=== PATIENT | female | born 1995 | race Caucasian/White ===

== ENCOUNTER → 2016-09-26 | Outpatient (CLI) | payer BC ==
[2016-09-26 22:22] LABS: CHLAM PCR NOT DETECTED (NOT DETECT)
== END ==
LOC: LAB 20:31
PROVIDERS: ATTEND Nurse Practitioner Acute Care
DX: N89.8 Other specified noninflammatory disorders of vagina (principal)
CPT/HCPCS: 87086; 87210; 87491; 87591

== ENCOUNTER 2017-03-22 10:02 | Emergency (ER) | payer SELFPAY ==
[2017-03-22 10:09] VITALS: BP 114/67
[2017-03-22] MEDS ORDERED: METHYLPREDNISOLONE INJ 125 MG/2 ML SDV IM ONE (10:19)
--- NOTE | 2017-03-22 10:21 | ER Document Report ---
HPI - HPI Pain Level: 2 Notes: Patient is a 22-year-old female who presents the ED complaining of a sore throat , swollen tonsils, and feverish 2 days. Patient states that she is still able to eat and drink, but does have pain and some discomfort with swallowing. Patient has not had any [id number] meds for symptoms. Patient states that she has had some nasal congestion and discharge. Denies any drug allergies or significant past medical history. Patient states her symptoms have been persistent and not worsening. Denies any headache, neck pain/ stiffness, eye redness/discharge, chest pain, palpitations, syncope, cough, shortness of breath, wheeze, dyspnea, abdominal pain, nausea/vomiting/diarrhea, urinary retention, dysuria, hematuria, or rash. Denies any recent travel, illness, exposure to sick contacts. Immunizations reported to be up-to-date. - ROS Notes: REVIEW OF SYSTEMS: CONSTITUTIONAL : see hpi. Denies recent illness. EENT: see hpi CARDIOVASCULAR: Denies chest pain. Denies palpitations or racing or irregular heart beat. Denies ankle edema. RESPIRATORY: Denies cough, cold, or chest congestion. Denies shortness of breath, difficulty breathing, or wheezing. GASTROINTESTINAL: Denies abdominal pain or distention. Denies nausea, vomiting , or diarrhea. Denies blood in vomitus, stools, or per rectum. Denies black, tarry stools. Denies constipation. GENITOURINARY: Denies difficulty urinating, painful urination, burning, frequency, blood in urine, or discharge. MUSCULOSKELETAL: Denies back or neck pain or stiffness. Denies joint pain or swelling. SKIN: Denies rash, lesions or sores. NEUROLOGICAL: Denies confusion or altered mental status. Denies passing out or loss of consciousness. Denies dizziness or lightheadedness. Denies headache. Denies weakness or paralysis or loss of use of either side. Denies problems with gait or speech. Denies sensory loss, numbness, or tingling. ALL OTHER SYSTEMS REVIEWED AND NEGATIVE. Dictation was performed using [employer] voice recognition software - REPRODUCTIVE LMP: February 25, 2017 Reproductive: DENIES: : - DERM Skin Color: Normal Past Medical History - Social History Smoking Status: Never Smoker Family History: Reviewed & Not Pertinent Patient has suicidal ideation: No Patient has homicidal ideation: No Renal/ Medical History: Denies: Hx Peritoneal Dialysis Psychiatric Medical History: Reports: Hx Attention Deficit Hyperactivity Disorder, Hx Depression - Immunizations Immunizations up to date: Yes Hx Diphtheria, Pertussis, Tetanus Vaccination: Yes Vertical Provider Document - CONSTITUTIONAL Agree With Documented VS: Yes Notes: PHYSICAL EXAMINATION: GENERAL: Well-appearing, well-nourished and in no acute distress. HEAD: Atraumatic, normocephalic. EYES: Pupils equal round and reactive to light, extraocular movements intact, sclera anicteric, conjunctiva are normal. ENT: EAC clear b/l. TM's intact b/l without erythema, fluid, or perforation. Nares patent and without discharge. oropharynx mild erythema without exudates. 1+ tonsilar hypertrophy with exudate on the right. No palatine shift. Uvula midline. No tongue protrusion. Moist mucous membranes. No sinus tenderness. NECK: Normal range of motion, supple with anterior cerv lymphadenopathy. No rigidity/meningismus. LUNGS: Breath sounds clear to auscultation bilaterally and equal. No wheezes rales or rhonchi. HEART: Regular rate and rhythm without murmurs, rubs, gallops. ABDOMEN: Soft, nontender, nondistended abdomen. No guarding, no rebound. No masses appreciated. Normal bowel sounds present. No CVA tenderness bilaterally. No hepatosplenomegally. NEUROLOGICAL: Normal speech, normal gait. Normal sensory, motor exams PSYCH: Normal mood, normal affect. SKIN: Warm, Dry, normal turgor, no rashes or lesions noted. - INFECTION CONTROL TRAVEL OUTSIDE OF THE [place] IN LAST 30 DAYS: No - RESPIRATORY O2 Sat by Pulse Oximetry: 97 Course - Re-evaluation Re-evalutation: 03/22/17 10:55 Patient is an afebrile, well-hydrated, 22-year-old female who presents the ED with acute strep pharyngitis based on clinical suspicion/H&P today. Vitals are stable. PE otherwise unremarkable. Rapid strep negative (will treat on clinical suspicion). I will cover her with penicillin VK to take as directed. Solu-Medrol 125 mg given as well. Pt aware that if rash develops to stop medication and f/u with PCM. Avoid contact sports if any development of abd pain. Low suspicion for any meningitis, sepsis, peritonsillar/pharyngeal abscess, respiratory compromise, Hermes's, temporal arteritis, or other emergent systemic condition at this time. Patient is aware this condition can change from initial presentation and she needs to monitor symptoms closely. Conservative measures otherwise for symptoms. Recheck with your PCM this week. Consider consult with ENT for ongoing/worsening symptoms. Return to the ED with any worsening/concerning symptoms otherwise as reviewed in discharge. Patient is in agreement. - Vital Signs Vital signs: Temp Pulse Resp BP Pulse Ox 98.5 F 82 114/67 97 03/22/17 10:06 03/22/17 10:06 03/22/17 10:06 03/22/17 10:06 Discharge - Discharge Clinical Impression: Strep pharyngitis Condition: Stable Disposition: HOME, SELF-CARE Instructions: Penicillin V K ([facility]), Strep Throat ([facility]) Additional Instructions: Maintain adequate fluid intake Take meds as directed Salt water gargles, throat sprays, mouthwash rinse, peroxide gargles tylenol/ibuprofen as needed New toothbrush tomorrow evening over the counter cold medication as needed for symptoms F/u: with your PCM in 2-3 days for a recheck Consider consult with ENT for ongoing/worsening symptoms Return to the ED with any fever, worsening pain, chest pain, neck pain/stiffness , shortness of breath, cough, drooling, trouble swallowing/breathing, abdominal pain, n/v/d, rash, or worsening/concerning symptoms otherwise. Prescriptions: Penicillin V Potassium [Penicillin Vk 500 mg Tablet] 500 mg PO BID #20 tablet Forms: Return to Work Referrals: [facility] [Provider Group] - Follow up as needed [facility] [Provider Group] - Follow up as needed ENT [Provider Group] - Follow up as needed
== END 2017-03-22 10:51 | disposition home or self-care (01) ==
LOC: ER 10:02
DX: J02.0 Streptococcal pharyngitis (principal); R50.9 Fever, unspecified
CPT/HCPCS: 99283; 96372; 87070; 87880; 87077; J2930

== ENCOUNTER 2017-04-14 11:56 | Emergency (ER) | payer SELFPAY ==
[2017-04-14 13:15] LABS: APPEARANCE,URINE SLIGHTLY-CLOUDY; BILIRUBIN,URINE NEGATIVE (NEGATIVE); GLUCOSE, URINE NEGATIVE (NEGATIVE); KETONES,URINE NEGATIVE (NEGATIVE); LEUKOCYTE ESTERASE,URINE LARGE (NEGATIVE); NITRITE,URINE NEGATIVE (NEGATIVE); PROTEIN,URINE NEGATIVE (NEGATIVE); URINE SPECIFIC GRAVITY 1.017; UROBILINOGEN,URINE NEGATIVE mg/dL (<2.0)
[2017-04-14] MEDS ORDERED: AZITHROMYCIN 250 MG TABLET PO ONE (13:33)
[2017-04-14] MEDS ORDERED: LIDOCAINE 1% INJ-PF (10 MG/ML) 30 ML SDV INJ ONE (13:33)
[2017-04-14] MEDS ORDERED: CEFTRIAXONE INJ 1000 MG VIAL IM ONE (13:33)
--- NOTE | 2017-04-14 13:33 | ER Document Report ---
HPI - HPI Pain Level: 2 Notes: Patient is a 22-year-old female who presents to the ED complaining of a white vaginal discharge 1-2 days. Patient states that she is sexually active and does have unprotected sex with her fianc. Patient states that she has a history of bacterial vaginosis and yeast infections. She has no other concerns or complaints at this time. Denies any drug allergies or significant past medical history otherwise. Denies any . Denies any headache, fever, neck pain, URI, sore throat, chest pain, palpitations, syncope, cough, shortness of breath, wheeze, dyspnea, abdominal pain, nausea/vomiting/diarrhea, dysuria, hematuria, or rash. - ROS Notes: REVIEW OF SYSTEMS: CONSTITUTIONAL : Denies fever, chills, or sweats. Denies recent illness. EENT: Denies eye, ear, throat, or mouth pain or symptoms. Denies nasal or sinus congestion or discharge. Denies throat, tongue, or mouth swelling or difficulty swallowing. CARDIOVASCULAR: Denies chest pain. Denies palpitations or racing or irregular heart beat. Denies ankle edema. RESPIRATORY: Denies cough, cold, or chest congestion. Denies shortness of breath, difficulty breathing, or wheezing. GASTROINTESTINAL: Denies abdominal pain or distention. Denies nausea, vomiting , or diarrhea. Denies blood in vomitus, stools, or per rectum. Denies black, tarry stools. Denies constipation. GENITOURINARY: Denies difficulty urinating, painful urination, burning, frequency, blood in urine, or discharge. FEMALE GENITOURINARY: see hpi MUSCULOSKELETAL: Denies back or neck pain or stiffness. Denies joint pain or swelling. SKIN: Denies rash, lesions or sores. NEUROLOGICAL: Denies confusion or altered mental status. Denies passing out or loss of consciousness. Denies dizziness or lightheadedness. Denies headache. Denies weakness or paralysis or loss of use of either side. Denies problems with gait or speech. Denies sensory loss, numbness, or tingling. ALL OTHER SYSTEMS REVIEWED AND NEGATIVE. Dictation was performed using [employer] voice recognition software - REPRODUCTIVE LMP: 03/31/17 Reproductive: DENIES: : - DERM Skin Color: Normal Past Medical History - Social History Smoking Status: Never Smoker Chew tobacco use (# tins/day): No Frequency of alcohol use: Occasional Drug Abuse: None Family History: Reviewed & Not Pertinent Renal/ Medical History: Denies: Hx Peritoneal Dialysis Psychiatric Medical History: Reports: Hx Attention Deficit Hyperactivity Disorder, Hx Depression Surgical Hx: Negative - Immunizations Immunizations up to date: Yes Hx Diphtheria, Pertussis, Tetanus Vaccination: Yes Vertical Provider Document - CONSTITUTIONAL Agree With Documented VS: Yes Notes: PHYSICAL EXAMINATION: accompanied by Paris (female tech) GENERAL: Well-appearing, well-nourished and in no acute distress. NECK: Normal range of motion, supple without lymphadenopathy LUNGS: Breath sounds clear to auscultation bilaterally and equal. No wheezes rales or rhonchi. HEART: Regular rate and rhythm without murmurs ABDOMEN: Soft, nontender, nondistended abdomen. No guarding, no rebound. No masses appreciated. Normal bowel sounds present. CVA tenderness negative bilaterally. Female : No inguinal adenopathy. External genitalia without erythema, lesions , or masses. Vaginal mucosa pink with scant thin white d/c. Cervix parous, pink, and with clear scant discharge. Uterus is smooth. No adnexal tenderness. Extremities: No cyanosis/clubbing/edema b/l. Peripheral pulses 2+. Capillary refill less than 3 seconds. NEUROLOGICAL: Normal speech, normal gait. Normal sensory, motor exams PSYCH: Normal mood, normal affect. SKIN: Warm, Dry, normal turgor, no rashes or lesions noted. - INFECTION CONTROL TRAVEL OUTSIDE OF THE [place] IN LAST 30 DAYS: No - RESPIRATORY O2 Sat by Pulse Oximetry: 99 Course - Re-evaluation Re-evalutation: 04/14/17 13:51 Patient is an afebrile, well-hydrated, 22-year-old female who presents to the ED with a possible UTI and scant vaginal discharge. Vitals are stable. PE otherwise unremarkable. Zithromax 1 g and Rocephin 250 mg were given today for Chlamydia/gonorrhea as those tests are still pending. Her wet mount was unremarkable. Urinalysis showed large leuks with some white blood cells, so I will cover her for a possible UTI while her Chlamydia/gonorrhea test are still pending. Urine cultures pending as well. I will send her home with a prescription for Doxy (will help with [facility] infxn as well) to take twice a day for 1 week. Conservative measures for symptoms otherwise. With negative results and ongoing symptoms consider consult with [facility]. If STD testing comes back positive advised recheck with the health department. Return to the ED with any worsening/concerning symptoms otherwise as reviewed discharge. Recheck with your PCM this week as well. Patient is in agreement. - Vital Signs Vital signs: Temp Pulse Resp BP Pulse Ox 99.0 F 108 H 17 110/58 L 99 04/14/17 11:57 04/14/17 11:57 04/14/17 11:57 04/14/17 11:57 04/14/17 11:57 - Laboratory Laboratory results interpreted by me: 04/14/17 12:59 Ur Leukocyte Esterase LARGE H Procedures - Pelvic Exam Pelvic exam Time completed: 13:15 Cultures obtained: Yes Wet prep obtained: Yes Herpes culture obtained: No POC sent to lab: Yes Foreign body removed: No Bimanual exam performed: Yes - neg Witnessed by: Paris (female PCT) Discharge - Discharge Clinical Impression: Vaginal discharge UTI (urinary tract infection) Qualifiers: Urinary tract infection type: site unspecified Hematuria presence: without hematuria Qualified Code(s): N39.0 - Urinary tract infection, site not specified Condition: Stable Disposition: HOME, SELF-CARE Instructions: Cephalexin ([facility]), Urinary Tract Infection ([facility]) Additional Instructions: Push fluids (i.e. water, cranberry juice) Proper hygenic technique Keep the skin clean Safe sexual practices with condoms everytime Tylenol/ibuprofen as needed May use over the counter AZO for burning with urination Check in with the health department this week for further testing* Your chlamydia/Ghon test are pending and you will be notified if positive results; you may call in 1 day for the results as well Return immediately if symptoms worsen F/u with your PCM in 2-3 days for a recheck Consider consult with a Urologist for ongoing/worsening symptoms. Consider consult with OBGYN as well Return to the ED with any development of CHIN/fever, trouble with vision, eye redness, worsening pain, urethral discharge, urinary retention, blood in the urine, flank pain, abdominal pain, n/v, Chest Pain, shortness of breath, joint pains, trouble breathing, or any other worsening/concerning symptoms as needed otherwise. Prescriptions: Doxycycline Hyclate 100 mg PO BID #14 capsule Referrals: [facility] [Provider Group] - Follow up as needed CHAYITO PARISH MD [ACTIVE STAFF] - Follow up as needed [facility] [Provider Group] - Follow up as [facility] [NO LOCAL MD] - Follow up as needed
[2017-04-14 14:13] VITALS: BP 104/58
[2017-04-14 14:57] LABS: CHLAM PCR NOT DETECTED (NOT DETECT)
== END 2017-04-14 14:05 | disposition home or self-care (01) ==
LOC: ER 11:56
DX: N89.8 Other specified noninflammatory disorders of vagina (principal); N39.0 Urinary tract infection, site not specified
CPT/HCPCS: 99283; 96372; 87086; 87210; 81025; 81001; 87491; 87591; J3490; J0696

== ENCOUNTER 2018-05-02 09:12 | Emergency (ER) | payer SELFPAY ==
[2018-05-02 09:17] VITALS: BP 112/73
--- NOTE | 2018-05-02 09:49 | ER Document Report ---
HPI - HPI Pain Level: 4 Notes: Patient is an otherwise healthy 23-year-old female who presents with chief complaint of "flu symptoms". Patient reports that on Monday she began feeling weak with nausea, muscle aches, vomiting and diarrhea. Patient reports that a friend of hers have the flu and she was exposed to her. Patient denies any fevers. Has not received a flu shot this season. - REPRODUCTIVE Reproductive: DENIES: : Past Medical History - General Information source: Patient - Social History Smoking Status: Never Smoker Family History: Reviewed & Not Pertinent Renal/ Medical History: Denies: Hx Peritoneal Dialysis Psychiatric Medical History: Reports: Hx Attention Deficit Hyperactivity Disorder, Hx Depression - Immunizations Immunizations up to date: Yes Hx Diphtheria, Pertussis, Tetanus Vaccination: Yes Vertical Provider Document - CONSTITUTIONAL Notes: PHYSICAL EXAMINATION: GENERAL: Well-appearing, well-nourished and in no acute distress. HEAD: Atraumatic, normocephalic. EYES: Pupils equal round extraocular movements intact, conjunctiva are normal. ENT: Nares patent NECK: Normal range of motion LUNGS: No respiratory distress Musculoskeletal: Normal range of motion NEUROLOGICAL: Normal speech, normal gait. PSYCH: Normal mood, normal affect. SKIN: Warm, Dry, normal turgor, no rashes or lesions noted. - INFECTION CONTROL TRAVEL OUTSIDE OF THE [place] IN LAST 30 DAYS: No Course - Re-evaluation Re-evalutation: 05/02/18 10:36 Influenza a and B are negative. Patient appears well, vital signs stable, no signs of dehydration. Patient will be discharged home in stable condition. - Vital Signs Vital signs: Temp Pulse Resp BP Pulse Ox 98.0 F 92 20 112/73 99 05/02/18 09:16 05/02/18 09:16 05/02/18 09:16 05/02/18 09:16 05/02/18 09:16 Discharge - Discharge Clinical Impression: Viral illness Condition: Stable Disposition: HOME, SELF-CARE Additional Instructions: Viral Syndrome The physician has diagnosed a viral infection. Viruses not only cause "colds," but can cause many different symptoms including generalized aching, fever, headache, cough, diarrhea, nausea, vomiting, and fatigue. The treatment, for the most part, is simply relief of symptoms. This means that antibiotics are usually not given. Rest, fluids, pain medications and, occasionally, medication for the specific symptoms that are most bothersome will be prescribed. Use good handwashing to avoid passing the virus to others. Shared toys should be cleaned with disinfectant. Clean the toilets, sinks, and counter surfaces in bathrooms. Launder clothing in hot water. Contact the physician if you develop any new or unusual symptoms such as severe headache, stiff neck, high fever, chest pain, productive cough, or shortness of breath. You should be rechecked if you don't see marked improvement within seven to 10 days. Forms: Return to Work
[2018-05-02 10:27] LABS: A TYPE INFLUENZA AG NEGATIVE (NEGATIVE); B INFLUENZA AG NEGATIVE (NEGATIVE)
[2018-05-02] MEDS ORDERED: ONDANSETRON ODT 4 MG TAB (6 TAB/ER DISP) PO PRN (10:38)
== END 2018-05-02 11:00 | disposition home or self-care (01) ==
LOC: ER 09:12
DX: M79.10 Myalgia, unspecified site (principal); B34.9 Viral infection, unspecified; R11.2 Nausea with vomiting, unspecified; R19.7 Diarrhea, unspecified
CPT/HCPCS: 87804; 99283

== ENCOUNTER 2018-05-23 12:00 | Emergency (ER) | payer SELFPAY ==
[2018-05-23 12:24] VITALS: BP 100/63
--- NOTE | 2018-05-23 12:54 | ER Document Report ---
ED Medical Screen (RME) - General Chief Complaint: Vag Bleeding, +preg <12wks Stated Complaint: VAGINAL BLEEDING Time Seen by Provider: 05/23/18 12:49 Notes: 23 years old female about a month this morning started having abdominal cramp and bleeding, noted a productive concept. Assumed that she had miscarriage and came to the ED for further evaluation. TRAVEL OUTSIDE OF THE [place] IN LAST 30 DAYS: No - Related Data Allergies/Adverse Reactions: No Known Allergies Allergy (Verified 05/02/18 09:15) Past Medical History - General Last Menstrual Period: 04/13/18 - Social History Chew tobacco use (# tins/day): No Frequency of alcohol use: Social Renal/ Medical History: Denies: Hx Peritoneal Dialysis Psychiatric Medical History: Reports: Hx Attention Deficit Hyperactivity Disorder, Hx Depression - Immunizations Immunizations up to date: Yes Hx Diphtheria, Pertussis, Tetanus Vaccination: Yes Physical Exam - Vital signs Vitals: Temp Pulse Resp BP Pulse Ox 97.7 F 86 16 100/63 98 05/23/18 12:22 05/23/18 12:22 05/23/18 12:22 05/23/18 12:22 05/23/18 12:22 Course - Vital Signs Vital signs: Temp Pulse Resp BP Pulse Ox 97.7 F 86 16 100/63 98 05/23/18 12:22 05/23/18 12:22 05/23/18 12:22 05/23/18 12:22 05/23/18 12:22
== END 2018-05-23 14:50 | disposition left against medical advice (07) ==
LOC: ER 12:00
DX: O20.9 Hemorrhage in early pregnancy, unspecified (principal); O26.899 Other specified pregnancy related conditions, unspecified trimester; R10.9 Unspecified abdominal pain; Z3A.00 Weeks of gestation of pregnancy not specified; Z53.20 Procedure and treatment not carried out because of patient's decision for unspecified reasons
CPT/HCPCS: 99281

== ENCOUNTER 2018-10-10 08:37 | Emergency (ER) | payer MEDICAID ==
[2018-10-10] MEDS ORDERED: ACETAMINOPHEN 325 MG TABLET PO ONE (09:21)
[2018-10-10] MEDS ORDERED: NORMAL SALINE 1000 ML 1,000 ML IV ONE (09:21)
--- NOTE | 2018-10-10 09:23 | ER Document Report ---
ED GI/ - General Chief Complaint: Abdominal Pain Stated Complaint: FLANK PAIN Time Seen by Provider: 10/10/18 09:11 Primary Care Provider: [facility] [Provider Group] - Follow up tomorrow Mode of Arrival: Ambulatory Information source: Patient Notes: Patient is presently and states that she is about 10 weeks . Patient states that yesterday she developed right lower pelvic pain with nausea. Patient denies any urinary symptoms although does report intermittent vaginal bleeding since she found out she was . TRAVEL OUTSIDE OF THE [place] IN LAST 30 DAYS: No - HPI Patient complains to provider of: Pelvic pain, , Vaginal bleeding, Vaginal discharge Onset: Yesterday Timing/Duration: Persistent Quality of pain: Sharp Pain Level: 3 Vaginal bleeding (Compared to normal period): [employer] Sexual history: Active Associated symptoms: Nausea, Vaginal discharge. 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 denies: Fever, Recent illness EENT: No symptoms reported Cardiovascular: No symptoms reported Respiratory: No symptoms reported Gastrointestinal: Abdominal pain, Nausea. denies: Diarrhea, Vomiting Genitourinary: No symptoms reported. denies: Dysuria, Flank pain Female Genitourinary: , Vaginal discharge, Vaginal bleeding Musculoskeletal: No symptoms reported. denies: Back pain Skin: No symptoms reported Hematologic/Lymphatic: No symptoms reported Neurological/Psychological: No symptoms reported Physical Exam - Vital signs Vitals: Temp Pulse Resp BP Pulse Ox 97.8 F 95 16 113/75 99 10/10/18 08:52 10/10/18 08:52 10/10/18 08:52 10/10/18 08:52 10/10/18 08:52 - General General appearance: Appears well, Alert In distress: None - HEENT Head: Normocephalic, Atraumatic Eyes: Normal Conjunctiva: Normal Nasal: Normal Mouth/Lips: Normal Mucous membranes: Normal Neck: Normal, Supple. No: Lymphadenopathy - Respiratory Respiratory status: No respiratory distress Chest status: Nontender Breath sounds: Normal. No: Rales, Rhonchi, Stridor, Wheezing Chest palpation: Normal - Cardiovascular Rhythm: Regular Heart sounds: S1 appreciated, S2 appreciated Murmur: No - Abdominal Inspection: Normal Distension: No distension Bowel sounds: Normal Tenderness: Tender - Right lower pelvic tenderness. No: McBurney's point, Qureshi's sign, Guarding Organomegaly: No organomegaly - Genitourinary External exam: Normal Speculum exam: Cervix closed, Vaginal discharge Vaginal bleeding: None Bimanuel exam: Cervical motion tender, Adnexal tenderness - right - Back Back: Normal, Nontender. No: CVA tenderness - Extremities General upper extremity: Normal inspection, Nontender, Normal ROM General lower extremity: Normal inspection, Nontender, Normal ROM - Neurological Neuro grossly intact: Yes Cognition: Normal [place] Coma Scale Eye Opening: Spontaneous [place] Coma Scale Verbal: Oriented Uziel Coma Scale Motor: Obeys Commands [place] Coma Scale Total: 15 - Psychological Associated symptoms: Normal affect, Normal mood - Skin Skin Temperature: Warm Skin Moisture: Dry Skin Color: Normal Skin irregularity: Rash - Pearly papular lesions to the perineum with umbilicated center Course - Re-evaluation Re-evalutation: 10/10/18 patient with vaginal discharge and right adnexal tenderness, no McBurney's tenderness. Patient with UTI as well as BV noted on diagnostic evaluation. Patient with subchorionic bleed noted on ultrasound, no active bleeding noted on pelvic examination. Patient without any leukocytosis or unstable vital signs at this time. Patient presents with abdominal pain without signs of peritonitis or other life-threatening etiology. Patient appears stable for discharge and has been instructed to return immediately if the symptoms worsen in any way, or in12 hours if not improved for reevaluation. The patient has been instructed to return if the symptoms worsen or change in any way. - Vital Signs Vital signs: Temp Pulse Resp BP Pulse Ox 97.9 F 75 16 101/59 L 99 10/10/18 13:11 10/10/18 13:11 10/10/18 13:11 10/10/18 13:11 10/10/18 13:11 - Laboratory Result Diagrams: 10/10/18 09:29 10/10/18 09:29 Laboratory results interpreted by me: 10/10/18 10/10/18 10/10/18 09:06 09:29 09:29 RDW 14.5 H BUN 3 L Creatinine 0.49 L Calcium 10.5 H Beta HCG, Quant 518379.00 H Ur Leukocyte Esterase LARGE H Labs- Entire Visit 10/10/18 10/10/18 10/10/18 09:06 09:29 09:29 WBC 7.3 RBC 4.84 Hgb 14.4 Hct 41.3 MCV 86 MCH 29.8 MCHC 34.9 RDW 14.5 H Plt Count 193 Seg Neutrophils % 70.6 Lymphocytes % 24.0 Monocytes % 4.5 Eosinophils % 0.5 Basophils % 0.4 Absolute Neutrophils 5.2 Absolute Lymphocytes 1.8 Absolute Monocytes 0.3 Absolute Eosinophils 0.0 Absolute Basophils 0.0 Sodium 138.7 Potassium 3.9 Chloride 104 Carbon Dioxide 24 Anion Gap 11 BUN 3 L Creatinine 0.49 L Est GFR ( Amer) > 60 Est GFR (Non-Af Amer) > 60 Glucose 77 Calcium 10.5 H Total Bilirubin 0.6 Direct Bilirubin 0.1 Neonat Total Bilirubin Not Reportable Neonat Direct Bilirubin Not Reportable Neonat Indirect Bili Not Reportable AST 23 ALT 25 Alkaline Phosphatase 47 Total Protein 7.5 Albumin 4.8 Beta HCG, Quant 750417.00 H Total Beta HCG POSITIVE Urine Color YELLOW Urine Appearance CLOUDY Urine pH 7.0 Ur Specific [place] 1.011 Urine Protein NEGATIVE Urine Glucose (UA) NEGATIVE Urine Ketones NEGATIVE Urine Blood NEGATIVE Urine Nitrite NEGATIVE Urine Bilirubin NEGATIVE Urine Urobilinogen NEGATIVE Ur Leukocyte Esterase LARGE H Urine WBC (Auto) 18 Urine RBC (Auto) 2 Urine Bacteria (Auto) TRACE Urine WBC Clumps FEW Squamous Epi Cells Auto 8 Urine Mucus (Auto) FEW Urine Ascorbic Acid NEGATIVE Epi Cells (Wet Prep) Bacteria (Wet Prep) Trichomonas (Wet Prep) Vaginal WBC Vaginal Yeast Chlamydia DNA (PCR) N.gonorrhoeae DNA (PCR) Blood Type Rhogam Indicated 10/10/18 10/10/18 10/10/18 09:29 09:32 09:32 WBC RBC Hgb Hct MCV MCH MCHC RDW Plt Count Seg Neutrophils % Lymphocytes % Monocytes % Eosinophils % Basophils % Absolute Neutrophils Absolute Lymphocytes Absolute Monocytes Absolute Eosinophils Absolute Basophils Sodium Potassium Chloride Carbon Dioxide Anion Gap BUN Creatinine Est GFR ( Amer) Est GFR (Non-Af Amer) Glucose Calcium Total Bilirubin Direct Bilirubin Neonat Total Bilirubin Neonat Direct Bilirubin Neonat Indirect Bili AST ALT Alkaline Phosphatase Total Protein Albumin Beta HCG, Quant Total Beta HCG Urine Color Urine Appearance Urine pH Ur Specific [place] Urine Protein Urine Glucose (UA) Urine Ketones Urine Blood Urine Nitrite Urine Bilirubin Urine Urobilinogen Ur Leukocyte Esterase Urine WBC (Auto) Urine RBC (Auto) Urine Bacteria (Auto) Urine WBC Clumps Squamous Epi Cells Auto Urine Mucus (Auto) Urine Ascorbic Acid Epi Cells (Wet Prep) 3+ EPITHELIALS SEEN Bacteria (Wet Prep) 3+ BACTERIA SEEN Trichomonas (Wet Prep) NO TRICHOMONAS SEEN Vaginal WBC 3+ WBCS SEEN Vaginal Yeast NO YEAST SEEN Chlamydia DNA (PCR) NOT DETECTED N.gonorrhoeae DNA (PCR) NOT DETECTED Blood Type A POSITIVE Rhogam Indicated RHOGAM NOT INDICATED - Diagnostic Test Radiology reviewed: Reports reviewed Discharge - Discharge Clinical Impression: Bacterial vaginosis, Intrauterine UTI (urinary tract infection) Qualifiers: Urinary tract infection type: site unspecified Hematuria presence: without hematuria Qualified Code(s): N39.0 - Urinary tract infection, site not specified Subchorionic bleed Qualifiers: Fetus number: single or unspecified fetus Trimester: first trimester Qualified Code(s): O41.8X10 - Other specified disorders of amniotic fluid and membranes, first trimester, not applicable or unspecified Pelvic pain affecting Qualifiers: Trimester: first trimester Qualified Code(s): O26.891 - Other specified related conditions, first trimester Condition: Stable Disposition: HOME, SELF-CARE Instructions: Bleeding During Early ([facility]), Cephalexin ([facility]), Metronidazole ([facility]), Observation for Appendicitis ([facility]), Urinary Tract Infection ([facility]), Vaginosis, Bacterial ([facility]) Additional Instructions: Return immediately for any new or worsening symptoms Followup with your primary care provider, call tomorrow to make a followup appointment Pelvic rest until 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
[2018-10-10 09:42] LABS: ABSOLUTE LYMPHOCYTES (AUTO) 1.8 10^3/uL (0.5-4.7); ABSOLUTE MONOCYTES (AUTO) 0.3 10^3/uL (0.1-1.4); ABSOLUTE NEUT (AUTO) 5.2 10^3/uL (1.7-8.2); BASOPHILS % (AUTO) 0.4 % (0-2); EOSINOPHILS % (AUTO) 0.5 % (0-6); HEMATOCRIT 41.3 % (36.0-47.0); HEMOGLOBIN 14.4 g/dL (12.0-15.5); MEAN CORPUSCULAR HEMOGLOBIN 29.8 pg (27.0-33.4); MEAN CORPUSCULAR HGB CONC 34.9 g/dL (32.0-36.0); MEAN CORPUSCULAR VOLUME 86 fl (80-97); MONOCYTES % (AUTO) 4.5 % (3-13); PLATELET COUNT 193 10^3/uL (150-450); RED BLOOD COUNT 4.84 10^6/uL (3.72-5.28); RED CELL DISTRIBUTION WIDTH 14.5 % (11.5-14.0); SEGMENTED NEUTROPHILS % (AUTO) 70.6 % (42-78); TOTAL CELLS COUNTED % (AUTO) 100 %; WHITE BLOOD COUNT 7.3 10^3/uL (4.0-10.5)
[2018-10-10 09:51] LABS: APPEARANCE,URINE CLOUDY; BILIRUBIN,URINE NEGATIVE (NEGATIVE); COLOR,URINE YELLOW; GLUCOSE, URINE NEGATIVE (NEGATIVE); KETONES,URINE NEGATIVE (NEGATIVE); LEUKOCYTE ESTERASE,URINE LARGE (NEGATIVE); NITRITE,URINE NEGATIVE (NEGATIVE); PROTEIN,URINE NEGATIVE (NEGATIVE); URINE SPECIFIC GRAVITY 1.011; UROBILINOGEN,URINE NEGATIVE mg/dL (<2.0)
[2018-10-10 10:00] LABS: BACTERIA (WET MOUNT) 3+ BACTERIA SEEN; EPITHELIALS (WET MOUNT) 3+ EPITHELIALS SEEN; T.VAGINALIS (WET MOUNT) NO TRICHOMONAS SEEN; WBCS (WET MOUNT) 3+ WBCS SEEN; YEAST (WET MOUNT) NO YEAST SEEN
[2018-10-10 10:02] LABS: ALANINE AMINOTRANSFERASE 25 U/L (9-52); ALBUMIN 4.8 g/dL (3.5-5.0); ALKALINE PHOSPHATASE 47 U/L (38-126); ANION GAP 11 (5-19); ASPARTATE AMINO TRANSFERASE 23 U/L (14-36); BILIRUBIN,DIRECT 0.1 mg/dL (0.0-0.4); BILIRUBIN,TOTAL 0.6 mg/dL (0.2-1.3); BLOOD UREA NITROGEN 3 mg/dL (7-20); CALCIUM 10.5 mg/dL (8.4-10.2); CARBON DIOXIDE 24 mmol/L (22-30); CHLORIDE 104 mmol/L (98-107); GLUCOSE 77 mg/dL (75-110); POTASSIUM 3.9 mmol/L (3.6-5.0); SODIUM 138.7 mmol/L (137-145); TOTAL PROTEIN 7.5 g/dL (6.3-8.2)
[2018-10-10] MEDS ORDERED: CEFTRIAXONE 1 GM/D5W RTU 1 GM/50 ML RTUPB IV ONE (10:20)
[2018-10-10 11:18] LABS: CHLAM PCR NOT DETECTED (NOT DETECT); GON PCR NOT DETECTED (NOT DETECT)
--- NOTE | 2018-10-10 11:57 | RADIOLOGY REPORT (SQ) ---
EXAM DESCRIPTION: U/S [id number] TRNABD 1GES W/ODOP COMPLETED DATE/TIME: 10/10/2018 11:38 am REASON FOR STUDY: R pelvic pain, vag spotting COMPARISON: None. TECHNIQUE: Transabdominal static and realtime grayscale images acquired of the pelvis. Additional se lected spectral and color Doppler images recorded. All images stored on PACs. bHC,400 CLINICAL DATES: 10 weeks LIMITATIONS: None. FINDINGS: FETUS: Single Living intrauterine . ULTRASOUND EGA: 9 weeks 3 days ULTRASOUND MERY: 05/12/2019 EFW: Not applicable less than 20 weeks. CRL: 2.7 cm FHR: 187 beats per minute. SURVEY: No visualized anomalies. AMNIOTIC FLUID: Adequate amount. PLACENTA: Not yet developed due to early gestation. SUBCHORIONIC BLEED: Yes. SIZE OF BLEED: 3.9 x 4.0 x 0.8 cm. UTERUS: No masses. No anomalies. CERVICAL LENGTH: 3.0 cm. Closed. RIGHT ADNEXA: Normal ovary with normal vascular flow. No adnexal free fluid. No adnexal masses. LEFT ADNEXA: Normal ovary with normal vascular flow. No adnexal free fluid. No adnexal masses. FREE FLUID: None. OTHER: No other significant finding. IMPRESSION: LIVING INTRAUTERINE . EGA 9 weeks 3 days. Moderate size subchorionic hemorrhage. Trimester of : First - 0 to 13 weeks. TECHNICAL DOCUMENTATION: JOB ID: [id number] [employer]- All Rights Reserved rev Reading location - IP/workstation name: [email or web address]
[2018-10-10 13:12] VITALS: BP 101/59
== END 2018-10-10 13:11 | disposition home or self-care (01) ==
LOC: ER 08:37
DX: O23.41 Unspecified infection of urinary tract in pregnancy, first trimester (principal); O23.591 Infection of other part of genital tract in pregnancy, first trimester; B96.89 Other specified bacterial agents as the cause of diseases classified elsewhere; O46.8X1 Other antepartum hemorrhage, first trimester; O26.891 Other specified pregnancy related conditions, first trimester; R11.0 Nausea; R10.2 Pelvic and perineal pain; Z3A.10 10 weeks gestation of pregnancy
CPT/HCPCS: 99284; 96361; 96365; 86900; 86901; 36415; 87086; 87210; 84702; 85025; 80053; 81001; 87491; 87591; 76801; J3490; J7030; J0696

== ENCOUNTER 2018-10-16 11:40 | Emergency (ER) | payer MEDICAID ==
[2018-10-16] MEDS ORDERED: METOCLOPRAMIDE HCL 10 MG TABLET PO ONE (13:22)
--- NOTE | 2018-10-16 14:06 | ER Document Report ---
ED General - General Chief Complaint: Nausea/Vomiting Stated Complaint: FLU SYMPTOMS Time Seen by Provider: 10/16/18 13:07 Primary Care Provider: [facility] [Provider Group] - Follow up as needed ALESSANDRO DE JESUS MD [Primary Care Provider] - Follow up in 3-5 days Notes: Patient is a 23-year-old female, currently 11 weeks gravid that presents to the emergency department for chief complaint of generalized body aches and muscle aches. Patient is concerned she may have the flu, she denies having any dysuria or hematuria, she states she has had some sinus congestion associated with this. Denies having any pelvic pain, abdominal pain, chest pain or shortness of breath or difficulty breathing. She is mainly complaints of the body aches, nausea and vomiting. She states that her roommate had similar symptoms about 10 days ago, and has since improved from them. And he was diagnosed with the flu at that time. Past Medical History: Denies chronic medical conditions Past Surgical History: Denies surgical history Social History: Admits to smoking cigarettes daily, denies alcohol or illicit drug use. Family History: Reviewed and noncontributory for presenting illness Allergies: Reviewed, see documented allergy list. REVIEW OF SYSTEMS: Other than noted above, the 12 point review of systems was reviewed with the patient and were negative, all pertinent findings are included in the HPI. PHYSICAL EXAMINATION: Vital signs reviewed, nursing noted reviewed. GENERAL: Appears mildly uncomfortable, but well-hydrated HEAD: Atraumatic, normocephalic. EYES: Eyes appear normal, extraocular movements intact, sclera anicteric, conjunctiva are normal. ENT: nares patent, oropharynx clear without exudates. Moist mucous membranes. NECK: Normal range of motion, supple without lymphadenopathy LUNGS: Breath sounds clear to auscultation bilaterally and equal. No wheezes rales or rhonchi. HEART: Heart rate mildly tachycardic, regular rhythm. ABDOMEN: Soft, nontender, normoactive bowel sounds. No rebound, guarding, or rigidity. No masses appreciated. EXTREMITIES: Nontender, good range of motion, no pitting or edema. NEUROLOGICAL: No focal neurological deficits. Moves all extremities spontaneously Motor and sensory grossly intact on exam. PSYCH: Normal mood, normal affect. SKIN: Warm, Dry, normal turgor, no rashes or lesions noted on exposed skin TRAVEL OUTSIDE OF THE [place] IN LAST 30 DAYS: No - Related Data Allergies/Adverse Reactions: No Known Allergies Allergy (Verified 10/10/18 08:44) Past Medical History - Social History Smoking Status: Current Every Day Smoker Chew tobacco use (# tins/day): No Frequency of alcohol use: None Drug Abuse: None Family History: Reviewed & Not Pertinent Patient has suicidal ideation: No Patient has homicidal ideation: No Renal/ Medical History: Denies: Hx Peritoneal Dialysis Psychiatric Medical History: Reports: Hx Attention Deficit Hyperactivity Disorder, Hx Depression - Immunizations Immunizations up to date: Yes Hx Diphtheria, Pertussis, Tetanus Vaccination: Yes Physical Exam - Vital signs Vitals: Temp Pulse Resp BP Pulse Ox 98.2 F 105 H 20 122/80 99 10/16/18 11:54 10/16/18 11:54 10/16/18 11:54 10/16/18 11:54 10/16/18 11:54 Course - Re-evaluation Re-evalutation: Patient seen and examined vital signs reviewed. Laboratory data and imaging were ordered as appropriate for the patient's presenting symptoms and complaint, with consideration of any critical or life threatening conditions that may be associated with their obtained history and exam as noted above. Patient was treated with IV fluids and Reglan Results were reviewed when available and demonstrated UA consistent with urinary tract infection, influenza testing was negative, however the patient was having symptoms concerning for influenza, given that the patient is , will treat with Tamiflu, as well as cover her with antibiotics for urinary tract infection, which could explain some of her symptoms, she is also given a prescription for Reglan to help with any nausea or vomiting she has at home to maintain her hydration. The patient was re-evaluated and was improved Evaluation was most consistent with UTI, flulike symptoms Results were discussed with the patient at this point, after careful consideration I feel that that patient can be discharged from the emergency department, the patient was educated treatments and reasons to return to the emergency department based on their presumed diagnosis as noted above, they were advised to followup with a primary care physician in 2-3 days. Patient was agreeable to plan of care. *Note is created using voice recognition software and may contain spelling, syntax or grammatical errors. Laboratory 10/16/18 10/16/18 14:00 14:00 Urine Color YELLOW Urine Appearance SLIGHTLY-CLOUDY Urine pH 6.0 Ur Specific [place] 1.006 Urine Protein NEGATIVE Urine Glucose (UA) NEGATIVE Urine Ketones 20 H Urine Blood SMALL H Urine Nitrite NEGATIVE Urine Bilirubin NEGATIVE Urine Urobilinogen NEGATIVE Ur Leukocyte Esterase MODERATE H Urine RBC 10-20 Urine WBC 30-50 Ur Squamous Epith Cells MODERATE Urine Bacteria 1+ Urine Mucus 2+ Urine Ascorbic Acid NEGATIVE Influenza A (Rapid) NEGATIVE Influenza B (Rapid) NEGATIVE - Vital Signs Vital signs: Temp Pulse Resp BP Pulse Ox 98.6 F 98 16 126/80 H 100 10/16/18 15:24 10/16/18 15:24 10/16/18 15:24 10/16/18 15:24 10/16/18 15:24 - Laboratory Laboratory results interpreted by me: 10/16/18 14:00 Urine Ketones 20 H Urine Blood SMALL H Ur Leukocyte Esterase MODERATE H Discharge - Discharge Clinical Impression: Flu-like symptoms UTI (urinary tract infection) Qualifiers: Urinary tract infection type: site unspecified Hematuria presence: without hematuria Qualified Code(s): N39.0 - Urinary tract infection, site not specified Condition: Stable Disposition: HOME, SELF-CARE Instructions: Urinary Tract Infection ([facility]) Additional Instructions: Please take both antiviral and antibiotic medications as prescribed, and complete the entire course of both. The antiviral medication can cause nausea vomiting diarrhea, be mindful of this, he has been prescribed a medication to help with nausea and vomiting, take only if absolutely needed every 8 hours. Prescriptions: RX: Cephalexin Monohydrate [Keflex 500 mg Capsule] 500 mg PO BID 5 Days #10 capsule Metoclopramide HCl [Reglan 10 mg Tablet] 10 mg PO Q8H PRN #15 tablet PRN Reason: nausea and vomiting Oseltamivir Phosphate [Tamiflu 75 mg Capsule] 75 mg PO BID #10 capsule Referrals: [facility] [Provider Group] - Follow up as needed ALESSANDRO DE JESUS MD [Primary Care Provider] - Follow up in 3-5 days
[2018-10-16 14:32] LABS: A TYPE INFLUENZA AG NEGATIVE (NEGATIVE); B INFLUENZA AG NEGATIVE (NEGATIVE)
[2018-10-16 14:59] LABS: APPEARANCE,URINE SLIGHTLY-CLOUDY; BILIRUBIN,URINE NEGATIVE (NEGATIVE); COLOR,URINE YELLOW; GLUCOSE, URINE NEGATIVE (NEGATIVE); KETONES,URINE 20 mg/dL (NEGATIVE); LEUKOCYTE ESTERASE,URINE MODERATE (NEGATIVE); NITRITE,URINE NEGATIVE (NEGATIVE); PROTEIN,URINE NEGATIVE (NEGATIVE); URINE SPECIFIC GRAVITY 1.006; UROBILINOGEN,URINE NEGATIVE mg/dL (<2.0)
[2018-10-16 15:06] LABS: ADD MANUAL MICROSCOPIC YES
[2018-10-16 15:07] LABS: BACTERIA,URINE 1+ /HPF; WBC,URINE 30-50 /HPF
[2018-10-16 15:29] VITALS: BP 126/80
== END 2018-10-16 15:29 | disposition home or self-care (01) ==
LOC: ER 11:40
DX: O98.511 Other viral diseases complicating pregnancy, first trimester (principal); J11.1 Influenza due to unidentified influenza virus with other respiratory manifestations; O23.41 Unspecified infection of urinary tract in pregnancy, first trimester; O21.9 Vomiting of pregnancy, unspecified; O26.891 Other specified pregnancy related conditions, first trimester; R09.81 Nasal congestion; M79.10 Myalgia, unspecified site; O99.331 Smoking (tobacco) complicating pregnancy, first trimester; Z3A.11 11 weeks gestation of pregnancy
CPT/HCPCS: 99284; 87086; 81001; 87804; J3490

== ENCOUNTER 2018-10-24 08:03 | Emergency (ER) | payer MEDICAID ==
[2018-10-24] MEDS ORDERED: ACETAMINOPHEN 325 MG TABLET PO ONE (08:34)
--- NOTE | 2018-10-24 08:40 | ER Document Report ---
ED General - General Chief Complaint: Abdominal Pain Stated Complaint: ABDOMINAL PAIN Time Seen by Provider: 10/24/18 08:24 Primary Care Provider: ALESSANDRO DE JESUS MD [Primary Care Provider] - Follow up as needed TRAVEL OUTSIDE OF THE [place] IN LAST 30 DAYS: No - HPI Notes: Patient is a 23-year-old female that presents to the emergency department for chief complaint of lower abdominal pain. 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 She started having lower abdominal cramping yesterday. Today the pain became more constant. She denies any associated back pain, dysuria, urinary frequency, vaginal discharge and vaginal bleeding. She has had an ultrasound in this to confirm IUP at a different facility. She denies any complications with this current . She states this is the longest she has been able to carry in the past. She denies associated fevers, chills and vomiting but has had some nausea. Past Medical History: Negative Past Surgical History: Negative Social History: Daily tobacco. Denies alcohol and drug use Family History: Reviewed and noncontributory for presenting illness Allergies: Reviewed, see documented allergy list. REVIEW OF SYSTEMS: CONSTITUTIONAL : No fever No chills No diaphoresis No recent illness EENT: No vision changes No congestion No sore throat CARDIOVASCULAR: No chest pain No palpitations RESPIRATORY: No shortness of breath No cough No difficulty breathing GASTROINTESTINAL: abdominal pain nausea No vomiting No diarrhea GENITOURINARY: No dysuria No hematuria No difficulty urinating MUSCULOSKELETAL: No back pain No leg pain No arm pain SKIN: No rashes No lesions LYMPHATIC: No swollen, enlarged glands. NEUROLOGICAL: No lightheadedness No headache No weakness No paresthesias PSYCHIATRIC: No anxiety No depression PHYSICAL EXAMINATION: Vital signs reviewed, nursing noted reviewed. GENERAL: Well-appearing, well-nourished and in no acute distress. HEAD: Atraumatic, normocephalic. EYES: Eyes appear normal, extraocular movements intact, sclera anicteric, conjunctiva are normal. ENT: nares patent, oropharynx clear without exudates. Moist mucous membranes. NECK: Normal range of motion, supple without lymphadenopathy LUNGS: Breath sounds clear to auscultation bilaterally and equal. No wheezes rales or rhonchi. HEART: Regular rate and rhythm without murmurs ABDOMEN: Soft, mild suprapubic tenderness, normoactive bowel sounds. No rebound, guarding, or rigidity. No masses appreciated. EXTREMITIES: Nontender, good range of motion, no pitting or edema. NEUROLOGICAL: No focal neurological deficits. Moves all extremities spontaneously Motor and sensory grossly intact on exam. PSYCH: Normal mood, normal affect. SKIN: Warm, Dry, normal turgor, no rashes or lesions noted on exposed skin - Related Data Allergies/Adverse Reactions: No Known Allergies Allergy (Verified 10/24/18 08:24) Past Medical History - Social History Smoking Status: Current Every Day Smoker Family History: Reviewed & Not Pertinent Renal/ Medical History: Denies: Hx Peritoneal Dialysis Psychiatric Medical History: Reports: Hx Attention Deficit Hyperactivity Disorder, Hx Depression - Immunizations Immunizations up to date: Yes Hx Diphtheria, Pertussis, Tetanus Vaccination: Yes Physical Exam - Vital signs Vitals: Temp Pulse Resp BP Pulse Ox 98.7 F 100 18 117/66 94 10/24/18 08:08 10/24/18 08:08 10/24/18 08:08 10/24/18 08:08 10/24/18 08:08 Course - Re-evaluation Re-evalutation: 10/24/18 08:40 Vitals reviewed. Nursing notes reviewed. Patient given Tylenol for pain. 10/24/18 10:38 Laboratory 10/24/18 10/24/18 10/24/18 08:45 09:05 09:05 WBC 12.5 H RBC 4.31 Hgb 12.8 Hct 36.8 MCV 85 MCH 29.7 MCHC 34.8 RDW 14.6 H Plt Count 188 Seg Neutrophils % 89.0 H Lymphocytes % 6.1 L Monocytes % 4.7 Eosinophils % 0.1 Basophils % 0.1 Absolute Neutrophils 11.2 H Absolute Lymphocytes 0.8 Absolute Monocytes 0.6 Absolute Eosinophils 0.0 Absolute Basophils 0.0 Beta HCG, Quant 36483.00 H Total Beta HCG POSITIVE Urine Color DARK YELLOW Urine Appearance CLOUDY Urine pH 6.0 Ur Specific [place] 1.023 Urine Protein NEGATIVE Urine Glucose (UA) NEGATIVE Urine Ketones TRACE H Urine Blood SMALL H Urine Nitrite NEGATIVE Urine Bilirubin NEGATIVE Urine Urobilinogen NEGATIVE Ur Leukocyte Esterase MODERATE H Urine WBC (Auto) 4 Urine RBC (Auto) 6 Urine Bacteria (Auto) TRACE Squamous Epi Cells Auto 14 Urine Mucus (Auto) MOD Urine Ascorbic Acid NEGATIVE Blood Type Rhogam Indicated 10/24/18 09:05 WBC RBC Hgb Hct MCV MCH MCHC RDW Plt Count Seg Neutrophils % Lymphocytes % Monocytes % Eosinophils % Basophils % Absolute Neutrophils Absolute Lymphocytes Absolute Monocytes Absolute Eosinophils Absolute Basophils Beta HCG, Quant Total Beta HCG Urine Color Urine Appearance Urine pH Ur Specific [place] Urine Protein Urine Glucose (UA) Urine Ketones Urine Blood Urine Nitrite Urine Bilirubin Urine Urobilinogen Ur Leukocyte Esterase Urine WBC (Auto) Urine RBC (Auto) Urine Bacteria (Auto) Squamous Epi Cells Auto Urine Mucus (Auto) Urine Ascorbic Acid Blood Type A POSITIVE Rhogam Indicated RHOGAM NOT INDICATED Obstetrics Ultrasound 10/24/18 08:34 IMPRESSION: 1. Single intrauterine gestation at sonographic gestational age of 11 weeks, 5 days. Estimated date of delivery, 05/10/2019. 2. No significant interval change in subchorionic hemorrhage. Trimester of : First - 0 to 13 weeks. 10/24/18 10:40 Patient's lab work is unremarkable. Ultrasound shows single live intrauterine gestation with appropriate heart rate and no subchorionic hemorrhage. Patient's Rh+ and not requiring RhoGam. Urinalysis does show possible early UTI and she will be started on Macrobid given her history of frequent miscarriages and current symptoms. Patient will follow closely with OB for reevaluation. She is stable at discharge. - Vital Signs Vital signs: Temp Pulse Resp BP Pulse Ox 98.7 F 100 18 117/66 94 10/24/18 08:08 10/24/18 08:08 10/24/18 08:08 10/24/18 08:08 10/24/18 08:08 - Laboratory Result Diagrams: 10/24/18 09:05 Laboratory results interpreted by me: 10/24/18 10/24/18 10/24/18 08:45 09:05 09:05 WBC 12.5 H RDW 14.6 H Seg Neutrophils % 89.0 H Lymphocytes % 6.1 L Absolute Neutrophils 11.2 H Beta HCG, Quant 88895.00 H Urine Ketones TRACE H Urine Blood SMALL H Ur Leukocyte Esterase MODERATE H Discharge - Discharge Clinical Impression: Acute UTI, Abdominal pain affecting Condition: Stable Disposition: HOME, SELF-CARE Instructions: Urinary Tract Infection ([facility]), Nitrofurantoin ([facility]) Additional Instructions: Please return to the emergency department if you have any worsening, or concern of your symptoms. Please return to the emergency department if you develop chest pain, difficulty breathing, severe abdominal pain, or ongoing vomiting. Please follow-up with your primary care physician in 2-3 days and any other recommended physicians. If prescribed, take all medications as directed. If you have any questions or concerns do not hesitate to return the emergency department for evaluation. You were 11 weeks and 5 days on your ultrasound today putting your due date by today's ultrasound for May 10, 2019 Prescriptions: Nitrofurantoin Macrocrystal [Macrodantin] 100 mg PO BID #14 capsule Forms: Smoking Cessation Education Referrals: ALESSANDRO DE JESUS MD [Primary Care Provider] - Follow up in 3-5 days [facility] [[facility] - Follow up as needed
[2018-10-24 09:04] LABS: APPEARANCE,URINE CLOUDY; BILIRUBIN,URINE NEGATIVE (NEGATIVE); GLUCOSE, URINE NEGATIVE (NEGATIVE); KETONES,URINE TRACE mg/dL (NEGATIVE); LEUKOCYTE ESTERASE,URINE MODERATE (NEGATIVE); NITRITE,URINE NEGATIVE (NEGATIVE); PROTEIN,URINE NEGATIVE (NEGATIVE); URINE SPECIFIC GRAVITY 1.023; UROBILINOGEN,URINE NEGATIVE mg/dL (<2.0)
[2018-10-24 09:05] LABS: COLOR,URINE DARK YELLOW
[2018-10-24 09:14] LABS: ABSOLUTE LYMPHOCYTES (AUTO) 0.8 10^3/uL (0.5-4.7); ABSOLUTE MONOCYTES (AUTO) 0.6 10^3/uL (0.1-1.4); ABSOLUTE NEUT (AUTO) 11.2 10^3/uL (1.7-8.2); BASOPHILS % (AUTO) 0.1 % (0-2); EOSINOPHILS % (AUTO) 0.1 % (0-6); HEMATOCRIT 36.8 % (36.0-47.0); HEMOGLOBIN 12.8 g/dL (12.0-15.5); LYMPHOCYTES % (AUTO) 6.1 % (13-45); MEAN CORPUSCULAR HEMOGLOBIN 29.7 pg (27.0-33.4); MEAN CORPUSCULAR HGB CONC 34.8 g/dL (32.0-36.0); MEAN CORPUSCULAR VOLUME 85 fl (80-97); MONOCYTES % (AUTO) 4.7 % (3-13); PLATELET COUNT 188 10^3/uL (150-450); RED BLOOD COUNT 4.31 10^6/uL (3.72-5.28); RED CELL DISTRIBUTION WIDTH 14.6 % (11.5-14.0); TOTAL CELLS COUNTED % (AUTO) 100 %; WHITE BLOOD COUNT 12.5 10^3/uL (4.0-10.5)
--- NOTE | 2018-10-24 10:25 | RADIOLOGY REPORT (SQ) ---
EXAM DESCRIPTION: U/S [id number] TRNABD 1GES W/ODOP COMPLETED DATE/TIME: 10/24/2018 9:51 am REASON FOR STUDY: abdominal pain COMPARISON: 10/10/2018 TECHNIQUE: Transabdominal static and realtime grayscale images acquired of the pelvis. Additional se lected spectral and color Doppler images recorded. All images stored on PACs. bHCG: Not available. CLINICAL DATES: 12 weeks, 0 days LIMITATIONS: None. FINDINGS: FETUS: Single Living intrauterine . ULTRASOUND EGA: 11 weeks, 5 days ULTRASOUND MERY: 05/10/2019 EFW: Not applicable less than 20 weeks. CRL: 4.93 cm FHR: 180 beats per minute. SUBCHORIONIC BLEED: No significant change in a subchorionic hemorrhage adjacent to the gestational sa c measuring 3.8 x 3.8 x 0.4 cm. UTERUS: No masses. No anomalies. CERVICAL LENGTH: 2.7 cm Closed. RIGHT ADNEXA: Normal ovary with normal vascular flow. Cyst or follicular remnant in the right ovary. No adnexal free fluid. No adnexal masses. LEFT ADNEXA: Normal ovary with normal vascular flow. No adnexal free fluid. No adnexal masses. FREE FLUID: None. OTHER: No other significant finding. IMPRESSION: 1. Single intrauterine gestation at sonographic gestational age of 11 weeks, 5 days. E stimated date of delivery, 05/10/2019. 2. No significant interval change in subchorionic hemorrhage. Trimester of : First - 0 to 13 weeks. TECHNICAL DOCUMENTATION: JOB ID: [id number] [employer]- All Rights Reserved Reading location - IP/workstation name: [email or web address]
[2018-10-24] MEDS ORDERED: NITROFURANTOIN MONOHYD/M-CRYST 100 MG CAPSULE PO ONE (10:31)
[2018-10-24 10:50] VITALS: BP 124/56
== END 2018-10-24 11:00 | disposition home or self-care (01) ==
LOC: ER 08:03
DX: O23.41 Unspecified infection of urinary tract in pregnancy, first trimester (principal); O26.891 Other specified pregnancy related conditions, first trimester; R10.30 Lower abdominal pain, unspecified; R11.0 Nausea; O99.331 Smoking (tobacco) complicating pregnancy, first trimester; Z3A.11 11 weeks gestation of pregnancy; Z87.59 Personal history of other complications of pregnancy, childbirth and the puerperium
CPT/HCPCS: 99284; 86900; 86901; 36415; 84702; 85025; 81001; 76801; J3490 ×2; J8499

== ENCOUNTER 2019-04-22 14:40 | Outpatient (CLI) | payer MEDICAID | END 2019-04-22 15:26 | disposition home or self-care (01) | LOC: LC 14:40 | PROVIDERS: ATTEND Obstetrics & Gynecology Gynecology | PROC: 4A1HXCZ Monitoring of Products of Conception, Cardiac Rate, External Approach (ICD-10-PCS; principal; 2019-04-22) | DX: O99.333 Smoking (tobacco) complicating pregnancy, third trimester (principal); Z3A.37 37 weeks gestation of pregnancy | CPT/HCPCS: 59025 ==

== ENCOUNTER 2019-05-03 17:25 | Inpatient (IN) | payer MEDICAID ==
[2019-05-03] MEDS ORDERED: RINGERS SOLUTION,LACTATED 300 ML IV ONE (17:41)
[2019-05-03] MEDS ORDERED: OXYTOCIN/NORMAL SALINE 20 UNIT/1,000 ML RTUINJ IV PRN (17:41)
[2019-05-03 18:13] LABS: ABSOLUTE BASOPHILS # (AUTO) 0.1 10^3/uL (0.0-0.2); ABSOLUTE EOSINOPHILS # (AUTO) 0.1 10^3/uL (0.0-0.6); ABSOLUTE LYMPHOCYTES (AUTO) 2.1 10^3/uL (0.5-4.7); ABSOLUTE MONOCYTES (AUTO) 0.7 10^3/uL (0.1-1.4); ABSOLUTE NEUT (AUTO) 11.8 10^3/uL (1.7-8.2); BASOPHILS % (AUTO) 0.4 % (0-2); EOSINOPHILS % (AUTO) 0.4 % (0-6); HEMOGLOBIN 11.3 g/dL (12.0-15.5); LYMPHOCYTES % (AUTO) 14.4 % (13-45); MEAN CORPUSCULAR HEMOGLOBIN 29.6 pg (27.0-33.4); MEAN CORPUSCULAR HGB CONC 34.1 g/dL (32.0-36.0); MEAN CORPUSCULAR VOLUME 87 fl (80-97); MONOCYTES % (AUTO) 4.9 % (3-13); PLATELET COUNT 225 10^3/uL (150-450); RED BLOOD COUNT 3.81 10^6/uL (3.72-5.28); RED CELL DISTRIBUTION WIDTH 13.4 % (11.5-14.0); SEGMENTED NEUTROPHILS % (AUTO) 79.9 % (42-78); TOTAL CELLS COUNTED % (AUTO) 100 %; WHITE BLOOD COUNT 14.8 10^3/uL (4.0-10.5)
[2019-05-03] MEDS ORDERED: LIDOCAINE 1% INJ-PF (10 MG/ML) 30 ML SDV ONE (18:47)
[2019-05-03] MEDS ORDERED: OXYTOCIN/NORMAL SALINE 20 UNIT/1,000 ML RTUINJ ONE (18:47)
[2019-05-03] MEDS ORDERED: MISOPROSTOL 0.2 MG TABLET ONE (18:47)
[2019-05-03] MEDS ORDERED: OXYTOCIN 10 UNIT/ML VIAL ONE (18:47)
[2019-05-03 18:57] LABS: APPEARANCE,URINE CLEAR; BILIRUBIN,URINE NEGATIVE (NEGATIVE); COLOR,URINE YELLOW; GLUCOSE, URINE NEGATIVE (NEGATIVE); KETONES,URINE NEGATIVE (NEGATIVE); LEUKOCYTE ESTERASE,URINE NEGATIVE (NEGATIVE); NITRITE,URINE NEGATIVE (NEGATIVE); PROTEIN,URINE NEGATIVE (NEGATIVE); URINE SPECIFIC GRAVITY 1.021; UROBILINOGEN,URINE NEGATIVE mg/dL (<2.0)
[2019-05-03] MEDS: RINGERS SOLUTION,LACTATED 1,000 ML IV PRN ×2 (18:57→23:50)
[2019-05-03 19:11] LABS: URINE AMPHETAMINES SCREEN NEGATIVE; URINE BARBITURATES SCREEN NEGATIVE; URINE BENZODIAZEPINES SCREEN NEGATIVE; URINE COCAINE SCREEN NEGATIVE; URINE METHADONE SCREEN NEGATIVE; URINE PHENCYCLIDINE SCREEN NEGATIVE
[2019-05-03 19:15] LABS: URINE MARIJUANA (THC) SCREEN UNCONFIRMED POSITIVE
[2019-05-04] MEDS ORDERED: EPHEDRINE SULFATE INJ 50 MG/1 ML AMPULE ONE (00:30)
[2019-05-04] MEDS ORDERED: BUPIVACAINE HCL 0.25 % INJ/PF (2.5 MG/1 ML) 30 ML VIAL ONE (00:30)
[2019-05-04] MEDS ORDERED: FENTANYL/BUPIVACAINE/NS/PF 300 MCG/150 ML RTUINJ EPI ONE (00:30)
[2019-05-04] MEDS ORDERED: FENTANYL CITRATE INJ/PF 100 MCG/2 ML AMPUL ONE (00:31)
[2019-05-04] MEDS: RINGERS SOLUTION,LACTATED 1,000 ML IV PRN (01:37)
[2019-05-04] MEDS ORDERED: ACETAMINOPHEN 325 MG TABLET PO PRN (03:25)
[2019-05-04] MEDS ORDERED: DIBUCAINE 1% OINTMENT 56 GM TP PRN (03:25)
[2019-05-04] MEDS ORDERED: DIPHENHYDRAMINE HCL 25 MG CAPSULE PO PRN (03:25)
[2019-05-04] MEDS ORDERED: MAGNESIUM HYDROXIDE SUSP 30 ML UDCUP PO PRN (03:25)
[2019-05-04] MEDS ORDERED: PROMETHAZINE HCL 25 MG SUPP.RECT PR PRN (03:25)
[2019-05-04] MEDS ORDERED: NA PHOS,M-B/NA PHOS,DI-BA (ADULT) 133 ML ENEMA PR PRN (03:25)
[2019-05-04] MEDS ORDERED: ZOLPIDEM TARTRATE 5 MG TABLET PO PRN (03:25)
[2019-05-04] MEDS ORDERED: ACETAMINOPHEN WITH CODEINE #3 TABLET PO PRN (03:25)
[2019-05-04] MEDS ORDERED: PSEUDOEPHEDRINE HCL 30 MG TABLET PO PRN (03:25)
[2019-05-04] MEDS ORDERED: PROMETHAZINE HCL 25 MG TABLET PO PRN (03:25)
[2019-05-04] MEDS ORDERED: BENZOCAINE/MENTHOL AEROSOL SPRAY 56 ML TOP PRN (03:25)
[2019-05-04] MEDS ORDERED: PROMETHAZINE HCL INJ 25 MG/1 ML VIAL IV PRN (03:25)
[2019-05-04] MEDS ORDERED: GLYCERIN/WITCH HAZEL LEAF 1 EACH MED..WIPE TP PRN (03:25)
[2019-05-04] MEDS ORDERED: DIPH/PERTUSS(ACELL)/TETANUS VAC/PF 0.5 ML SYR (>=10YO) IM PRN (03:25)
[2019-05-04] MEDS ORDERED: MEASLES,MUMPS&RUBELLA VACC/PF 0.5 ML VIAL SUBCUT PRN (03:25)
[2019-05-04] MEDS ORDERED: OXYTOCIN/NORMAL SALINE 20 UNIT/1,000 ML RTUINJ IV PRN (03:25)
--- NOTE | 2019-05-04 05:21 | Delivery Summary ---
Del Sum A-C Datetime Report Generated by CPN: 05/04/2019 05:21 DELIVERY PERSONNEL DELIVERY PERSONNEL: [id number] Delivery Doctor:: Marylou Pink MD Anesthesiologist:: Uyen Steen MD Labor and Delivery Nurse:: Desiree Fernandez RNband attacher Nurse:: Odessa Christianson RN Nursery Nurse:: Shanon Jimenez RN Cause Analyst/ALLERGIST/IMMUNOLOGIST: Kalpana Mendoza, ST MATERNAL INFORMATION Delivery Anesthesia: Epidural Medications After Delivery: Pitocin Drip 20 Units/1000ml NSS Estimated Blood Loss (ml): 300 Delivery QBL: 300 Delivery QBL Comment: 300 at delivery, 105 at recovery total 405ml Maternal Complications: None Provider Comments: VMI delivered in KAR presentation. NO nuchal cord shoulders and body delivered without difficulty. Cord doubly clamped and cut and infant to maternal abdomen for NRP. Placenta delivered intact spontaneously. FF at U. 2nd degree perineal laceration repaired in usual fashion. Good hemostasis. Mother and baby stable upon provider leaving the room. LABOR SUMMARY EDC: 05/12/2019 00:00 No. Babies in Womb: 1 Attempted: No Labor Anesthesia: Epidural LABOR INFORMATION Reason for Induction: Intrauterine Growth Retardation Onset of Labor: 05/03/2019 23:00 Complete Dilatation: 05/04/2019 02:26 Oxytocin: Induction Group B Beta Strep: Negative Steroids Given: None Reason Steroids Not Administered: Not Applicable MEMBRANES Membranes Rupture Method: Spontaneous Rupture of Membranes: 05/04/2019 02:25 Length of Rupture (hr): 0.55 Amniotic Fluid Color: Clear Amniotic Fluid Amount: Small Amniotic Fluid Odor: Normal STAGES OF LABOR Stage 1 hr: 3 Stage 1 min: 26 Stage 2 hr: 0 Stage 2 min: 32 Stage 3 hr: 0 Stage 3 min: 2 Total Time in Labor hr: 4 Total Time in Labor min: 0 VAGINAL DELIVERY Episiotomy: None Laceration #1: Perineal Laceration Extension #1: Second Degree Laceration Repair: Yes Laceration Repair Note: 2nd degree perineal laceration repaired in usual fashion Sponge Count Correct: Yes Sharps Count Correct: Yes CSECTION DELIVERY Primary Indication: N/A Secondary Indication: N/A CSection Incidence: N/A CSection Incision: N/A BABY A INFORMATION Infant Delivery Date/Time: 05/04/2019 02:58 Method of Delivery: Vaginal Born in Route : No : N/A Forceps: N/A Vacuum Extraction: N/A Shoulder Dystocia : No PRESENTATION/POSITION BABY A Presentation: Cephalic Cephalic Presentation: Vertex Vertex Position: Left Occipital Anterior Breech Presentation: N/A PLACENTA INFORMATION BABY A Placenta Delivery Time : 05/04/2019 03:00 Placenta Method of Delivery: Spontaneous Placenta Status: Delivered SCORES BABY A Heart Rate 1 min: >100 bpm Resp Effort 1 min: Good Cry Reflex Irritability 1 min: Cough or Sneeze or Pulls Away Muscle Tone 1 min: Active Motion Color 1 min: Blue/Pale Resuscitation Effort 1 min: Tactile Stimulation SCORE 1 MIN: 8 Heart Rate 5 min: >100 bpm Resp Effort 5 min: Good Cry Reflex Irritability 5 min: Cough or Sneeze or Pulls Away Muscle Tone 5 min: Active Motion Color 5 min: Body [place], Extremities Blue Resuscitation Effort 5 min: Tactile Stimulation SCORE 5 MIN: 9 INFORMATION BABY A Gestational Age at Delivery: 38.6 Gestational Status: Early Term- 37- 38.6 Weeks Infant Outcome : Liveborn Infant Condition : Stable Sex: Male IDENTIFICATION BABY A Verification Date/Time: 05/04/2019 03:03 ID Band Number: [id number] Mother's Name Verified: Yes RN Verifying : Thompson RollinsGalindo COTTRELL Additional Verifying Personnel: Sabra Gómez RN WEIGHT/LENGTH BABY A Infant Birthweight (gm): 2368 Infant Weight (lb): 5 Weight (oz): 4 Length (in): 18.50 Infant Length (cm): 46.99 CORD INFORMATION BABY A No. Cord Vessels: 3 Nuchal Cord : N/A Cord Blood Taken: Yes-For Storage (Mom's Blood type +) Suction: None ASSESSMENT BABY A Infant Complications: Multiple Variable Decels Physical Findings at Delivery: Caput Succedaneum Respirations: Appears Normal Skin to Skin: Yes Chief Wheelage Clerk/ALS Called : No Care By: RN Tony Transferred To: Remains with Mother BABY B INFORMATION : N/A SIGNATURES Signature: with User ID: [email or web address]
[2019-05-04] MEDS: IBUPROFEN 800 MG TABLET PO SCH ×3 (06:20→21:26)
--- NOTE | 2019-05-04 07:58 | Admission Physical ---
Datetime Report Generated by CPN: 05/04/2019 07:57 CURRENT ADMISSION Chief Complaint: Other Chief Complaint Other: IUGR, minimal growth in 2wks Indication for Induction: Indicated by Testing Admit Impression : Term, Intrauterine ; No Active Labor; Intact Membranes; Induction of Labor Admit Plan: Admit to Unit; Initiate Labor Induction Protocol ALLERGIES Medication Allergies: No Medication Allergies: No Known Allergies (05/03/2019) Latex: No Latex Allergies Food Allergies: denies Environmental Allergies: denies OBSTETRICAL HISTORY EDC: 05/12/2019 00:00 : 5 Para: 0 Term: 0 : 0 SAB: 4 IAB: 0 Ectopic: 0 Livin Cesareans: 0 VBACs: 0 Multiple Births: 0 Gestational Diabetes: No Rh Sensitization: No Incompetent Cervix: No GERALDO: No Infertility: No ART Treatment: No Uterine Anomaly: No IUGR: No Hx Previous C/S: No Macrosomia: No Hx Loss/Stillborn: No PIH: No Hx : No Placenta Previa/Abruption: No Depression/PP Depression: Yes PTL/PROM: No Post Hemorrhage: No Current Procedures: Ultrasound; NST Obstetrical History Comments: G1- SAB G2- SAB G3- SAB G4- SAB G5- Current SEE RECORDS Alcohol: No Marijuana : No Cocaine: No Other Illicit Drugs: No Cigarettes: Current Everyday Smoker. 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 Surgery: No Heart Disease: No Hosp/Surgery: No Autoimmune Disorder: No Anesthetic Complications: No Kidney Disease: No Abnormal Pap Smear: No Neuro/Epilepsy: No Psychiatric Disorders: Yes Other Medical Diseases: No Hepatitis/Liver Disease: No Significant Family History: No Varicosities/Phlebitis: No Trauma/Violence : No Thyroid Dysfunction: No Medical History Comments: Suicide attempt in 2012, depression, labial fusion as child, current smoker INFECTIOUS HISTORY Gonorrhea: No Genital Herpes: No Chlamydia: No Tuberculosis: No Syphilis: No Hepatitis: No HIV/AIDS Exposure: No Rash or Viral Illness: No HPV: No PHYSICAL EXAM General: Normal HEENT: Normal Neurologic: Normal Thyroid: Deferred Heart: Normal Lungs: Normal Breast: Deferred Back: Normal Abdomen: Normal Genitourinary Exam: Normal Extremities: Normal DTRs: Normal Pelvic Type: Adequate Vital Signs: Reviewed VAGINAL EXAM Dilatation: 3 Effacement: 50 Station: -2 Contraction Comments: none MEMBRANES Membranes: Intact FETUS A EGA: 38.5 Monitoring: External US FHR- Baseline: 145 Variability: Moderate 6-25bpm Accelerations: 15X15 Decelerations: None FHR Category: Category I Presentation: Vertex Admit Comment: 24yo at 38.5ega presents from the office for induction due to IUGR and minimal growth on US 2wks apart. Borderline NST in the office. Pt smokes THC. FOB has a child with Trisomy 13 and informaseq was normal. + tobacco use as well. H/o depression and occasion suicidal ideation. H/o SA x 4. Admit for IOL and anticipate . PLANS FOR LABOR AND DELIVERY Labor and Delivery: None Pain Management: Epidural Feeding Preference: Breast Benefit of Breast Feed Discussed: Yes Circumcision: No INFORMED CONSENT Informed Consent Obtained: Vaginal Delivery; Induction of Labor; Risks, Benefits and Alternatives Discussed Signature: with User ID: [email or web address]
[2019-05-04] MEDS: PRENATAL VITAMIN W DHA CAPSULE PO SCH (10:40)
[2019-05-04] MEDS: DOCUSATE SODIUM 100 MG CAPSULE PO SCH ×2 (10:40→18:29)
[2019-05-04] MEDS: FERROUS SULFATE 325 MG TABLET PO SCH ×2 (10:40→18:29)
[2019-05-04] MEDS: FAMOTIDINE 20 MG TABLET PO SCH ×2 (10:40→21:27)
[2019-05-04] MEDS: SENNOSIDES/DOCUSATE 8.6-50 MG 1 EACH TABLET PO SCH (10:40)
[2019-05-04] MEDS: ACETAMINOPHEN WITH CODEINE #3 TABLET PO PRN (20:19)
[2019-05-05] MEDS: IBUPROFEN 800 MG TABLET PO SCH ×3 (06:02→21:41)
[2019-05-05 06:36] LABS: HEMATOCRIT 30.4 % (36.0-47.0); HEMOGLOBIN 10.4 g/dL (12.0-15.5); MEAN CORPUSCULAR HEMOGLOBIN 29.9 pg (27.0-33.4); MEAN CORPUSCULAR HGB CONC 34.2 g/dL (32.0-36.0); MEAN CORPUSCULAR VOLUME 88 fl (80-97); PLATELET COUNT 171 10^3/uL (150-450); RED BLOOD COUNT 3.47 10^6/uL (3.72-5.28); RED CELL DISTRIBUTION WIDTH 13.7 % (11.5-14.0); WHITE BLOOD COUNT 11.7 10^3/uL (4.0-10.5)
[2019-05-05] MEDS: FAMOTIDINE 20 MG TABLET PO SCH ×2 (09:39→21:41)
[2019-05-05] MEDS: PRENATAL VITAMIN W DHA CAPSULE PO SCH (09:39)
[2019-05-05] MEDS: SENNOSIDES/DOCUSATE 8.6-50 MG 1 EACH TABLET PO SCH (09:39)
[2019-05-05] MEDS: DOCUSATE SODIUM 100 MG CAPSULE PO SCH ×2 (09:39→17:41)
[2019-05-05] MEDS: FERROUS SULFATE 325 MG TABLET PO SCH ×2 (09:39→17:41)
--- NOTE | 2019-05-05 10:16 | PDOC PROGRESS REPORT ---
Subjective-OB Progress Note for:: 05/05/19 Subjective: reports bleeding slowing, pain controlled with current meds, denies needs Physical Exam (OB) Vital Signs: Temp Pulse Resp BP Pulse Ox 97.6 F 78 16 99/65 L 100 05/05/19 07:23 05/05/19 07:23 05/05/19 07:23 05/05/19 07:23 05/05/19 07:23 Intake & Output 05/04/19 05/05/19 05/06/19 06:59 06:59 06:59 Intake Total 833 Balance 833 Weight 59.8 kg - Abdomen Description: Soft, Round Hernia Present: No Fundal Description: Firm, Midline Fundal Height: u/3 - u/4 - Abdominal Distension: No distension Tenderness: Nontender - Extremities Lower extremities: Shyanne's sign - neg Calf: Normal, Nontender Objective-Diagnostic Laboratory: 05/05/19 06:27 05/05/19 06:27 WBC 11.7 H RBC 3.47 L Hgb 10.4 L Hct 30.4 L MCV 88 MCH 29.9 MCHC 34.2 RDW 13.7 Plt Count 171 Assessment and Plan(PN) - Assessment and Plan (1) Intrauterine growth restriction (IUGR) affecting care of mother, third trimester, single gestation Is this a current diagnosis for this admission?: Yes (2) Obstetrical laceration, second degree Is this a current diagnosis for this admission?: Yes (3) Vaginal delivery Is this a current diagnosis for this admission?: Yes - Time Spent with Patient Time with patient: Less than 15 minutes Medications reviewed and adjusted accordingly: Yes - Disposition Anticipated Discharge: Home Within: within 24 hours
[2019-05-05] MEDS: ACETAMINOPHEN WITH CODEINE #3 TABLET PO PRN (12:24)
[2019-05-06] MEDS: IBUPROFEN 800 MG TABLET PO SCH (05:16)
[2019-05-06 08:09] VITALS: BP 105/59
--- NOTE | 2019-05-06 09:45 | PDOC DISCHARGE SUMMARY ---
Impression - Admit/DC Date/PCP Admission Date/Primary Care Provider: 05/03/19 17:25 DELROY KNIGHT MD Discharge Date: 05/06/19 - Discharge Diagnosis (1) Intrauterine growth restriction (IUGR) affecting care of mother, third trimester, single gestation Is this a current diagnosis for this admission?: Yes (2) Obstetrical laceration, second degree Is this a current diagnosis for this admission?: Yes (4) Vaginal delivery Is this a current diagnosis for this admission?: Yes - Additional Information Resuscitation Status: Full Code Discharge Diet: Regular Discharge Activity: Balance Activity w/Rest, Pelvic Rest Referrals: DELROY KNIGHT MD [Primary Care Provider] - Prescriptions: Ibuprofen [Motrin 800 mg Tablet] 800 mg PO Q8HP PRN #60 tablet PRN Reason: Home Medications: No122/Iron/Folic Acid [ Multi Tablet] 1 each PO DAILY 10/24/18 Ferrous Sulfate [Iron] 325 mg PO BID 05/03/19 Ibuprofen [Motrin 800 mg Tablet] 800 mg PO Q8HP PRN #60 tablet 05/06/19 Results Laboratory Results: WBC 11.7 10^3/uL (4.0-10.5) H 05/05/19 06:27 RBC 3.47 10^6/uL (3.72-5.28) L 05/05/19 06:27 Hgb 10.4 g/dL (12.0-15.5) L 05/05/19 06:27 Hct 30.4 % (36.0-47.0) L 05/05/19 06:27 MCV 88 fl (80-97) 05/05/19 06:27 MCH 29.9 pg (27.0-33.4) 05/05/19 06:27 MCHC 34.2 g/dL (32.0-36.0) 05/05/19 06:27 RDW 13.7 % (11.5-14.0) 05/05/19 06:27 Plt Count 171 10^3/uL (150-450) 05/05/19 06:27 Lymph % (Auto) 14.4 % (13-45) 05/03/19 18:00 [place] % (Auto) 4.9 % (3-13) 05/03/19 18:00 Eos % (Auto) 0.4 % (0-6) 05/03/19 18:00 Baso % (Auto) 0.4 % (0-2) 05/03/19 18:00 Absolute Neuts (auto) 11.8 10^3/uL (1.7-8.2) H 05/03/19 18:00 Absolute Lymphs (auto) 2.1 10^3/uL (0.5-4.7) 05/03/19 18:00 Absolute Monos (auto) 0.7 10^3/uL (0.1-1.4) 05/03/19 18:00 Absolute Eos (auto) 0.1 10^3/uL (0.0-0.6) 05/03/19 18:00 Absolute Basos (auto) 0.1 10^3/uL (0.0-0.2) 05/03/19 18:00 Seg Neutrophils % 79.9 % (42-78) H 05/03/19 18:00 Urine Color YELLOW 05/03/19 17:35 Urine Appearance CLEAR 05/03/19 17:35 Urine pH 6.0 (5.0-9.0) 05/03/19 17:35 Ur Specific [place] 1.021 05/03/19 17:35 Urine Protein NEGATIVE mg/dL (NEGATIVE) 05/03/19 17:35 Urine Glucose (UA) NEGATIVE mg/dL (NEGATIVE) 05/03/19 17:35 Urine Ketones NEGATIVE mg/dL (NEGATIVE) 05/03/19 17:35 Urine Blood MODERATE (NEGATIVE) H 05/03/19 17:35 Urine Nitrite NEGATIVE (NEGATIVE) 05/03/19 17:35 Urine Bilirubin NEGATIVE (NEGATIVE) 05/03/19 17:35 Urine Urobilinogen NEGATIVE mg/dL (<2.0) 05/03/19 17:35 Ur Leukocyte Esterase NEGATIVE (NEGATIVE) 05/03/19 17:35 Urine Ascorbic Acid NEGATIVE (NEGATIVE) 05/03/19 17:35 Urine Opiates Screen NEGATIVE 05/03/19 17:35 Urine Methadone Screen NEGATIVE 05/03/19 17:35 Ur Barbiturates Screen NEGATIVE 05/03/19 17:35 Ur Phencyclidine Scrn NEGATIVE 05/03/19 17:35 Ur Amphetamines Screen NEGATIVE 05/03/19 17:35 U Benzodiazepines Scrn NEGATIVE 05/03/19 17:35 Urine Cocaine Screen NEGATIVE 05/03/19 17:35 U Marijuana (THC) Screen UNCONFIRMED POSITIVE 05/03/19 17:35 RPR NONREACTIVE (NONREACTIVE) 05/03/19 18:00 Blood Type A POSITIVE 05/03/19 18:00 Antibody Screen NEGATIVE 05/03/19 18:00
[2019-05-06] MEDS: DOCUSATE SODIUM 100 MG CAPSULE PO SCH (10:09)
[2019-05-06] MEDS: SENNOSIDES/DOCUSATE 8.6-50 MG 1 EACH TABLET PO SCH (10:09)
[2019-05-06] MEDS: FERROUS SULFATE 325 MG TABLET PO SCH (10:09)
[2019-05-06] MEDS: FAMOTIDINE 20 MG TABLET PO SCH (10:09)
[2019-05-06] MEDS: PRENATAL VITAMIN W DHA CAPSULE PO SCH (10:09)
[2019-05-06] MEDS: ACETAMINOPHEN WITH CODEINE #3 TABLET PO PRN (10:25)
== END 2019-05-06 13:05 | disposition home or self-care (01) | DRG 806 ==
LOC: LR 17:25 → 2S 05-04 05:25
PROVIDERS: ADMIT Student in an Organized Health Care Education/Training Program; ATTEND Student in an Organized Health Care Education/Training Program
PROC: 10E0XZZ Delivery of Products of Conception, External Approach (ICD-10-PCS; principal; 2019-05-04)
PROC: 0KQM0ZZ Repair Perineum Muscle, Open Approach (ICD-10-PCS; 2019-05-04)
PROC: 3E0234Z Introduction of Serum, Toxoid and Vaccine into Muscle, Percutaneous Approach (ICD-10-PCS; 2019-05-06)
DX: O36.5930 Maternal care for other known or suspected poor fetal growth, third trimester, not applicable or unspecified (principal); O99.324 Drug use complicating childbirth; Z37.0 Single live birth; O70.1 Second degree perineal laceration during delivery; O76 Abnormality in fetal heart rate and rhythm complicating labor and delivery; O99.334 Smoking (tobacco) complicating childbirth; F17.210 Nicotine dependence, cigarettes, uncomplicated; Z91.5 Personal history of self-harm; Z3A.38 38 weeks gestation of pregnancy; F12.90 Cannabis use, unspecified, uncomplicated; Z23 Encounter for immunization
CPT/HCPCS: 36415; 59025; 80307; 80349; 81005; 85025; 85027; 86592; 86850; 86900; 86901; 88307; 90715; G0480; J2590; J3010; J3490